=== PATIENT | female | born 1955 | race Caucasian/White ===

== ENCOUNTER 2017-07-30 12:18 | Observation (INO) | payer BC ==
[~2017-07-30] VITALS: Ht 167.6 cm; Wt 68.2 kg
[2017-07-30] MEDS ORDERED: PRILOSEC 20MG20 MG PO (12:27)
[2017-07-30] MEDS ORDERED: CARDIZEM CD 18180 MG PO (12:27)
[2017-07-30 12:47] LABS: BASO % 0.3 % (0.0-2.0); EOS % 0.2 % (0-4.0); GRAN # 7.8 (1.4-6.5); GRAN % 73.2 % (42.2-75.2); HEMOGLOBIN 13.5 g/dl (12.5-16.0); LYMPH # 2.1 (1.2-3.4); LYMPH % 19.8 % (20.0-51.0); MEAN CELL VOLUME 89 fl (80.0-100.0); MEAN CORPUSCULAR HEMOGLOBIN 30 pg (27.0-31.0); MEAN CORPUSCULAR HGB CONC 34 g/dl (33.0-37.0); MONO # 0.7 (0.1-0.6); MONO % 6.1 % (1.7-9.3); PLATELET COUNT 289 K/mm3 (130-400); RED BLOOD COUNT 4.48 M/mm3 (4.10-5.30); REDCELL DISTRIBUTION WIDTH-CV 13.9 % (11.5-14.5)
[2017-07-30 12:57] LABS: ALANINE AMINOTRANSFERASE 33 U/L (9-52); ALBUMIN 4.3 gm/dL (3.5-5.0); ALKALINE PHOSPHATASE 73 U/L (50-136); ANION GAP 12 mmol/L (7-16); AST,SGOT 23 U/L (15-37); BILIRUBIN,TOTAL 0.7 mg/dL (0.0-1.0); BLOOD UREA NITROGEN 13 mg/dL (7-17); CALCIUM 9.2 mg/dL (8.4-10.2); CARBON DIOXIDE 25 mmol/L (22-30); CHLORIDE 103 mmol/L (98-107); CREATININE, serum 0.78 mg/dL (0.52-1.25); GLUCOSE 107 mg/dL (74-106); LIPASE 146 U/L (23-300); POTASSIUM 3.6 mmol/L (3.4-5.0); SODIUM 140 mmol/L (137-145); TOTAL PROTEIN 7.6 gm/dL (6.4-8.2)
[2017-07-30 12:58] LABS: C-REACTIVE PROTEIN < 0.5 mg/dL (0.0-0.9)
[2017-07-30 13:06] LABS: TROPONIN-I < 0.012 ng/mL (0.000-0.034)
[2017-07-30 13:23] LABS: COLLECTION METHOD CLEAN CATCH
[2017-07-30 13:31] LABS: MUCOUS Present /lpf; PH 6 (5-8); SQUAMOUS EPITHELIAL 0-2 /hpf; URINE APPEARANCE Clear; URINE BACTERIA None Seen /hpf; URINE BILIRUBIN Negative (NEGATIVE); URINE BLOOD Negative (NEGATIVE); URINE COLOR Yellow; URINE GLUCOSE Negative (NEGATIVE); URINE KETONE Negative (NEGATIVE); URINE LEUKOCYTE ESTERASE Negative (NEGATIVE); URINE NITRATE Negative (NEGATIVE); URINE PROTEIN(semi-quant) Negative (NEGATIVE); URINE RBC 0-2 /hpf; URINE UROBILINOGEN Negative (NEGATIVE)
[2017-07-30 16:03] VITALS: BP 130/73; PULSE 97; TEMP 98.7
[2017-07-30 16:05] VITALS: BP 130/73; PULSE 76; TEMP 98.7
[2017-07-30 17:51] VITALS: BP 141/70; PULSE 70; TEMP 98.3
[2017-07-30 21:57] VITALS: BP 141/70; PULSE 78; TEMP 98.1
[2017-07-31 01:52] VITALS: BP 121/62; PULSE 80; TEMP 98.6
[2017-07-31 05:29] VITALS: BP 124/69; PULSE 73; TEMP 98.6
[2017-07-31 07:14] LABS: BASO # 0.1 (0.0-0.2); BASO % 0.7 % (0.0-2.0); EOS # 0.1 (0.0-0.7); EOS % 0.9 % (0-4.0); GRAN # 4.3 (1.4-6.5); GRAN % 55.9 % (42.2-75.2); HEMATOCRIT 37.8 % (37.0-47.0); HEMOGLOBIN 12.3 g/dl (12.5-16.0); LYMPH # 2.7 (1.2-3.4); LYMPH % 35.7 % (20.0-51.0); MEAN CELL VOLUME 93 fl (80.0-100.0); MEAN CORPUSCULAR HEMOGLOBIN 30 pg (27.0-31.0); MEAN CORPUSCULAR HGB CONC 33 g/dl (33.0-37.0); MEAN PLATELET VOLUME 9.4 fl (7.4-10.4); MONO # 0.5 (0.1-0.6); MONO % 6.5 % (1.7-9.3); PLATELET COUNT 264 K/mm3 (130-400); RED BLOOD COUNT 4.08 M/mm3 (4.10-5.30); REDCELL DISTRIBUTION WIDTH-CV 14.4 % (11.5-14.5)
[2017-07-31 07:32] LABS: ALBUMIN 3.5 gm/dL (3.5-5.0); CALCIUM 8.9 mg/dL (8.4-10.2); CREATININE, serum 0.76 mg/dL (0.52-1.25); PHOSPHOROUS 3.8 mg/dL (2.5-4.5); POTASSIUM 4.1 mmol/L (3.4-5.0)
[2017-07-31 09:37] VITALS: BP 135/85; PULSE 79; TEMP 98.2
[2017-07-31 13:57] VITALS: BP 128/75; PULSE 80; TEMP 98.2
== END 2017-07-31 15:17 | disposition home or self-care (01) ==
LOC: COL.ER 12:18 → JCC 14:23 → EDBEDREQ 15:05 → JCC 07-31 15:17
PROVIDERS: Emergency Medicine; Surgery
DX: K56.690 Other partial intestinal obstruction (principal); Z90.710 Acquired absence of both cervix and uterus; Z88.0 Allergy status to penicillin; Z88.6 Allergy status to analgesic agent
CPT/HCPCS: G0378; J1170; J2405; J7030; J7120; Q9967

== ENCOUNTER 2017-10-01 08:05 | Emergency (ER) | payer BC ==
[~2017-10-01] VITALS: Ht 167.6 cm; Wt 68.2 kg
[~2017-10-01 08:05] MED LIST: CARDIZEM CD 18180 MG PO; PRILOSEC 20MG20 MG PO
[2017-10-01 08:12] VITALS: TEMP 99.9
[2017-10-01] MEDS ORDERED: EVISTA 60MG60 MG/TAB PO (08:19)
[2017-10-01] MEDS ORDERED: CARTIA XT180 MG PO (08:19)
[2017-10-01] MEDS ORDERED: CENTRUM1 TA1 PO (08:20)
[2017-10-01 08:45] LABS: BASO % 0.2 % (0.0-2.0); EOS # 0.1 (0.0-0.7); EOS % 1.2 % (0-4.0); GRAN # 9.4 (1.4-6.5); GRAN % 77.5 % (42.2-75.2); HEMATOCRIT 40.8 % (37.0-47.0); HEMOGLOBIN 13.6 g/dl (12.5-16.0); LYMPH # 1.4 (1.2-3.4); LYMPH % 11.2 % (20.0-51.0); MEAN CELL VOLUME 91 fl (80.0-100.0); MEAN CORPUSCULAR HEMOGLOBIN 30 pg (27.0-31.0); MEAN CORPUSCULAR HGB CONC 33 g/dl (33.0-37.0); MEAN PLATELET VOLUME 9.6 fl (7.4-10.4); MONO # 1.2 (0.1-0.6); MONO % 9.5 % (1.7-9.3); PLATELET COUNT 244 K/mm3 (130-400); RED BLOOD COUNT 4.48 M/mm3 (4.10-5.30); REDCELL DISTRIBUTION WIDTH-CV 13.2 % (11.5-14.5)
[2017-10-01 08:58] LABS: ALBUMIN 3.9 gm/dL (3.5-5.0); BILIRUBIN,TOTAL 0.9 mg/dL (0.0-1.0); C-REACTIVE PROTEIN 4.6 mg/dL (0.0-0.9); CALCIUM 9.3 mg/dL (8.4-10.2); CREATININE, serum 0.83 mg/dL (0.52-1.25); TOTAL PROTEIN 7.3 gm/dL (6.4-8.2)
[2017-10-01 09:22] LABS: COLLECTION METHOD CLEAN CATCH
[2017-10-01 09:29] LABS: MUCOUS Present /lpf; PH 6 (5-8); SQUAMOUS EPITHELIAL None Seen /hpf; URINE APPEARANCE Clear; URINE BACTERIA None Seen /hpf; URINE BILIRUBIN Negative (NEGATIVE); URINE BLOOD Negative (NEGATIVE); URINE COLOR Yellow; URINE GLUCOSE Negative (NEGATIVE); URINE KETONE Trace (NEGATIVE); URINE LEUKOCYTE ESTERASE Negative (NEGATIVE); URINE NITRATE Negative (NEGATIVE); URINE PROTEIN(semi-quant) Negative (NEGATIVE); URINE RBC None Seen /hpf; URINE UROBILINOGEN Negative (NEGATIVE)
[2017-10-01] MEDS ORDERED: FLAGYL500 MG PO (10:18)
[2017-10-01] MEDS ORDERED: ZOFRAN ODT4 MG PO (10:18)
[2017-10-01] MEDS ORDERED: LEVAQUIN 750MG750 M1 PO (10:18)
[2017-10-01 10:55] VITALS: BP 140/81; PULSE 103
== END 2017-10-01 11:17 | disposition home or self-care (01) ==
LOC: COL.ER 08:05
PROVIDERS: Emergency Medicine
DX: K57.92 Diverticulitis of intestine, part unspecified, without perforation or abscess without bleeding (principal); Z90.710 Acquired absence of both cervix and uterus
CPT/HCPCS: J2405; J7030; Q9967

== ENCOUNTER 2021-09-27 09:45 | Emergency (ER) | payer MEDICARE, OTHER ==
[~2021-09-27] VITALS: Ht 167.6 cm; Wt 70.5 kg
[~2021-09-27 09:45] MED LIST changes: +CARTIA XT180 MG PO; +CENTRUM1 TA1 PO; +EVISTA 60MG60 MG/TAB PO; +FLAGYL500 MG PO; +LEVAQUIN 750MG750 M1 PO; +ZOFRAN ODT4 MG PO
[2021-09-27 09:54] VITALS: TEMP 97.7
[2021-09-27] MEDS ORDERED: ZOFRAN ODT4 MG PO (12:14)
[2021-09-27] MEDS ORDERED: PERCOCET 325 MG1 TA2 PO (12:14)
[2021-09-27 12:22] VITALS: BP 157/86; PULSE 86
== END 2021-09-27 12:35 | disposition home or self-care (01) ==
LOC: COL.ER 09:45
DX: S52.501A Unspecified fracture of the lower end of right radius, initial encounter for closed fracture (principal); W10.8XXA Fall (on) (from) other stairs and steps, initial encounter
CPT/HCPCS: J2405; J2704; J3010; J7030

== ENCOUNTER 2021-11-10 09:02 | Outpatient (CLI) | payer MEDICARE, OTHER ==
[~2021-11-10] VITALS: Ht 167.6 cm; Wt 68.0 kg
[~2021-11-10 09:02] MED LIST changes: +PERCOCET 325 MG1 TA2 PO
[2021-11-10 09:24] VITALS: BP 149/96; PULSE 89
[2021-11-10] MEDS ORDERED: ATIVAN 0.50.5 MG/TAB PO (09:25)
[2021-11-10] MEDS ORDERED: MASON NATURAL2000 IU PO (09:25)
[2021-11-10] MEDS ORDERED: ONE-A-DAY ESSE1 EACH PO (09:25)
[2021-11-10 09:30] VITALS: BP 173/105; PULSE 90; TEMP 97.3
[2021-11-10 09:45] VITALS: BP 142/87; PULSE 87
[2021-11-10 10:00] VITALS: BP 134/85; PULSE 78
[2021-11-10 10:15] VITALS: BP 138/86; PULSE 83
[2021-11-10 10:30] VITALS: BP 140/96; PULSE 79
--- NOTE | 2021-11-10 10:35 | NUR ---
Pt tolerated infusion and 1 hr observation period without issue. IV DC'd, site wrapped with coban. Pt escorted out to ED entrance with steady gait.
== END 2021-11-10 10:35 | disposition home or self-care (01) ==
LOC: EUO 09:02
DX: U07.1 COVID-19 (principal)
CPT/HCPCS: M0222; Q0222

== ENCOUNTER → 2022-08-09 | Outpatient (CLI) | payer MEDICARE, OTHER ==
[~2022-08-09] MED LIST changes: +ATIVAN 0.50.5 MG/TAB PO; +MASON NATURAL2000 IU PO; +ONE-A-DAY ESSE1 EACH PO
== END ==
LOC: COL.RAD 13:59
DX: I65.22 Occlusion and stenosis of left carotid artery (principal); H35.63 Retinal hemorrhage, bilateral

== ENCOUNTER 2023-05-01 17:27 | Observation (INO) | payer MEDICARE, OTHER ==
[~2023-05-01] VITALS: Ht 167.6 cm; Wt 69.4 kg
[~2023-05-01 17:27] MED LIST changes: +Topical Skin Adhesive 1 EACH (1 ML) TOP ONE
[2023-05-01] MEDS ORDERED: Ondansetron 4 MG/2 ML VIAL IV ONE (18:00)
[2023-05-01] MEDS ORDERED: NS 1,000 ML IV ONE ×2 (18:00→21:30)
[2023-05-01] MEDS ORDERED: Morphine 4 MG/ML VIAL IV PRN ×2 (18:15→21:30)
[2023-05-01 18:18] LABS: BASO # 0.1 K/mm3 (0.0-0.2); BASO % 0.5 % (0.0-2.0); EOS % 0.1 % (0.0-4.0); GRAN # 12.2 K/mm3 (1.4-6.5); GRAN % 86.5 % (42.2-75.2); HEMATOCRIT 43.1 % (37.0-47.0); HEMOGLOBIN 14.6 g/dl (12.5-16.0); MEAN CELL VOLUME 88 fl (80.0-100.0); MEAN CORPUSCULAR HEMOGLOBIN 30 pg (27-31); MEAN CORPUSCULAR HGB CONC 34 g/dl (33.0-37.0); MEAN PLATELET VOLUME 9.7 fl (7.4-10.4); MONO # 0.8 K/mm3 (0.1-0.6); MONO % 5.5 % (1.7-9.3); PLATELET COUNT 232 K/mm3 (130-400); RED BLOOD COUNT 4.89 M/mm3 (4.10-5.30); REDCELL DISTRIBUTION WIDTH-CV 12.7 % (11.5-14.5)
[2023-05-01 18:33] LABS: ALBUMIN 4.2 gm/dL (3.4-4.8); BILIRUBIN,TOTAL 1.1 mg/dL (0.2-1.2); C-REACTIVE PROTEIN 2.79 mg/dL (0.00-0.50); CALCIUM 9.9 mg/dL (8.4-10.2); CREATININE, serum 0.9 mg/dL (0.57-1.11); POTASSIUM 3.9 mmol/L (3.5-4.5); TOTAL PROTEIN 7.4 gm/dL (6.2-8.1)
[2023-05-01] MEDS ORDERED: NS 64 ML IV SCH (18:48)
[2023-05-01] MEDS ORDERED: Iohexol 300 - 100 ML VIAL IV ONE (18:48)
[2023-05-01] MEDS ORDERED: HCTZ12.5TAB PO (19:54)
--- NOTE | 2023-05-01 21:21 | NUR ---
arrived in room from ED per WC, assisted over and into bed, Dr Trotter in to see patient
[2023-05-01 21:33] VITALS: BP 140/74; PULSE 100; TEMP 99
[2023-05-01 21:45] VITALS: BP_SYST 140
[2023-05-01] MEDS ORDERED: Promethazine 12.5 MG in NS 50 ML IV PRN (21:45)
--- NOTE | 2023-05-01 21:45 | NUR ---
full admission and physical assessment completed, see interventions for further info, c/o pain 11/22, she does close her eyes and rest at intervals, offered to bring mosrphine at 2215 when appropriate but she declined and states she will call when ready for pain meds, consent signed, at bedside
[2023-05-01] MEDS ORDERED: PEPCID 20MG TAB20 MG PO (21:50)
[2023-05-01] MEDS ORDERED: fentaNYL 50 MCG/ML 2 ML VIAL ONE (22:45)
[2023-05-01] MEDS ORDERED: Succinylcholine PF 100 MG/5 ML SYRINGE/POLY AMP IV ONE (22:45)
[2023-05-01] MEDS ORDERED: Rocuronium 50 MG/5 ML Multi-Dose VIAL ONE (22:45)
[2023-05-01] MEDS ORDERED: Lidocaine PF 2% (20 MG/ML) 5 ML VIAL ONE (22:46)
[2023-05-01] MEDS ORDERED: Ondansetron 4 MG/2 ML VIAL ONE (22:46)
[2023-05-01] MEDS ORDERED: dexAMETHasone 10 MG/ML VIAL ONE (22:46)
--- NOTE | 2023-05-01 22:51 | NUR ---
appears to be dozing, surgery nurse in to talk with patient
[2023-05-01] MEDS ORDERED: HYDROmorphone 2 MG/1 ML VIAL IV PRN (23:15)
[2023-05-01] MEDS ORDERED: hydrALAZINE 20 MG/ML 1 ML VIAL IV PRN (23:15)
[2023-05-01] MEDS ORDERED: LR 1,000 ML IV SCH (23:15)
[2023-05-01] MEDS ORDERED: droPERidol 2.5 MG/ML 2 ML VIAL IV PRN (23:15)
[2023-05-01] MEDS ORDERED: Scopolamine 1 MG Delivered 3-Day PATCH TD SCH (23:15)
--- NOTE | 2023-05-01 23:43 | NUR ---
here to take patient to surgery, assisted up to bathroom and clothes removed, scopolamine patch applied, to surgery per bed
[2023-05-01 23:48] VITALS: BP_SYST 140
[2023-05-02] VITALS (13 sets, daily range): BP systolic 107–140; BP diastolic 51–64; PULSE 77–110; TEMP 97.7–99.6
[2023-05-02] MEDS ORDERED: Ketorolac 30 MG/ML VIAL ONE (00:31)
[2023-05-02] MEDS ORDERED: Ibuprofen 600 MG TAB PO PRN (00:45)
[2023-05-02] MEDS ORDERED: Ondansetron 4 MG/2 ML VIAL IV PRN (00:45)
[2023-05-02] MEDS ORDERED: Acetaminophen 325 MG TAB PO PRN (00:45)
[2023-05-02] MEDS ORDERED: NORCO 325 MG-51 TAB PO (00:46)
--- NOTE | 2023-05-02 01:20 | NUR ---
returned to room per bed from PACU, awake and alert but sleepy, IV infusing per gravity, O2 off and O2 sat 92%, 3 lap sites CD&I, denies pain, takes sips of water and tolerates well, at bedside
--- NOTE | 2023-05-02 01:30 | NUR ---
sleeping when entered room, O2 sat 89-90%, O2 on at 1L/NC
--- NOTE | 2023-05-02 01:45 | NUR ---
sleeping between checks, O2 sat 95% on O2 at 1L
--- NOTE | 2023-05-02 04:00 | NUR ---
appears to continue to sleep, resp quiet and easy
--- NOTE | 2023-05-02 05:10 | NUR ---
has been sleeping soundly, awake now, denies urge to void, encouraged to drink more water
--- NOTE | 2023-05-02 06:23 | NUR ---
assisted up to bathroom to try to void
--- NOTE | 2023-05-02 06:57 | NUR ---
bedside shift report given to MARTÍNEZ Bray
--- NOTE | 2023-05-02 08:00 | NUR ---
PT ALERT AND ORIENTED X4. VSS, POST OP VITALS COMPLETE. DENIES ANY PAIN AT THIS TIME. INCISION SITE TO ABD CDI, AND OPEN TO AIR. SHIFT ASSESSMENT COMPLETE. TOLERATING PO, INT TO RIGHT A/C. VOIDED. DENIES NAUSEA, DIZZINESS, OR CHEST PAIN. CALL LIGHT WITHIN REACH. DENIES FURTHER NEEDS AT THIS TIME.
--- NOTE | 2023-05-02 08:55 | NUR ---
RECIEVED REPORT FROM PROMOTIONAL MODEL AMANDO SOLIZ.
--- NOTE | 2023-05-02 10:04 | NUR ---
Initial visit; Patient thanked Wardrobe Coordinator for looking in on her and offering God's blessings and and thanks to God for a rapid and thorough healing.
--- NOTE | 2023-05-02 10:31 | NUR ---
JERI Student identified self as JERI Student and completed intake with patient and Kike at bedside. Patient lives in [place], [place] with her Kike (ph#[phone]). Patient sees Dr. Patience Chowdhury for primary care and prefers to obtain medications from [facility]. Patient stated that she has not had any issues with affording medications. Patient reported that she is independent with ADLs and does not utilize any DME. Patient's stated that he thinks they are each other's DPOA-HC. Patient is covered by Medicare for insurance. Patient stated that she plans on returning home at time of discharge. Discharge Plan: Home
--- NOTE | 2023-05-02 14:28 | NUR ---
ALL DISCHARGE INSTRUCTIONS EXPLAINED ALL QUESTIONS ANSWERED. PT VEBALIZES UNDERSTANDING. INT TO R A/C REMOVED AND PT WAS WALKED OFF UNIT TO PRIVATE VEHICLE.
== END 2023-05-02 13:59 | disposition home or self-care (01) ==
LOC: COL.ER 17:27 → SURG 19:43
PROVIDERS: Emergency Medicine; ADMIT Surgery
DX: K35.80 Unspecified acute appendicitis (principal)
CPT/HCPCS: G0378; J0330; J0780; J1100; J1885; J2270; J2405; J2543; J2704; J3010; J7030; Q9967